=== PATIENT | male | born 1960 | race Caucasian/White ===

== ENCOUNTER 2017-04-26 11:40 | Day surgery (SDC) | payer OTHER ==
[~2017-04-26] VITALS: Ht 185.4 cm; Wt 117.9 kg
[~2017-04-26 11:40] MED LIST: 0.9% Sodium Chloride 1,000 ML IV SCH; ASPI-973 PO; ATOR80TA PO; DILT240C51 PO; GEMF600T3 PO; OMEG1CAP25 PO; Sodium Chloride LOK Flush 10 mL Syringe IV PRN; fentaNYL-PF 50 mCg/mL 2 mL Inj IVPUSH PRN
[2017-04-26 11:59] VITALS: BP 144/92; PULSE 69; RESP 14; O2SAT 96
[2017-04-26 13:18] VITALS: BP 141/89; PULSE 70; RESP 14; O2SAT 96
[2017-04-26 13:28] VITALS: BP 133/80; PULSE 73; RESP 16; O2SAT 94
[2017-04-26 13:39] VITALS: BP 131/85; PULSE 59; RESP 16; O2SAT 94
--- NOTE | 2017-04-26 14:18 | ENDO ---
[address] [address] ENDOSCOPY PROCEDURE PATIENT: SUSU LARSON : 1960 MR#: [id number] ADMIT: 04/26/2017 JOB ID: [id number] DATE: 04/26/2017 PRIMARY PROVIDER: Donna Carty D.O. PROCEDURE: Esophagogastroduodenoscopy with biopsy and a colonoscopy with cold forceps polypectomies. INDICATIONS: A 56-year-old male with intermittent vomiting versus regurgitation and a personal history of colon polyps. EQUIPMENT: GIF H 180 J and a PCF H 190 DL. SEDATION: 1. 5 mg Versed. 2. 125 mcg fentanyl. COMPLICATIONS: None identified. BOWEL PREPARATION: Fair, adequate examination. PROCEDURAL INFORMATION: After the risks and benefits were explained, written and verbal informed consent was obtained. The patient was brought into the endoscopy suite and placed into the left lateral decubitus position. Sedation was achieved as above. The scope was introduced into the mouth through the bite block, and advanced to the second portion of the duodenum. The scope was slowly withdrawn to carefully examine the mucosa for any defects or lesions. Retroflexed views were accomplished in the stomach. The stomach was decompressed. The scope removed from the patient who tolerated the procedure well. The patient was then turned around. A digital rectal examination accomplished. No significant pathology appreciated. The scope was introduced into the rectum and advanced under direct visualization to the level of the cecum, as identified by the appendiceal orifice and ileocecal valve. The scope was slowly withdrawn to carefully examine the mucosa for any defects or lesions. Retroflexed views were avoided in the rectum. Multiple direct views were made through the dentate line for exclusion of pathology. The colon was decompressed. The scope removed from the patient who tolerated the procedure well. FINDINGS: 1. Duodenum: No significant pathology appreciated from the bulb through to the second portion. 2. Stomach: No ulcers, no outlet obstruction. No mass lesions. Retroflexed views of the LES were unremarkable. Mild gastropathy was seen throughout and random biopsy was acquired for exclusion of Helicobacter or other pathology. 3. Esophagus: The squamocolumnar junction generally correlated with the top of the gastric folds. However, there was evidence of LA grade C ulcerative esophagitis and it was difficult to exclude the presence of an element of short Kellogg's involved here. Subtle sliding hiatal hernia was evident. The GEJ was at 41 cm from the incisors. 4. Colon: A couple of diminutive polyps were removed from the right colon using cold forceps. Otherwise, no significant pathology was appreciated throughout. ENDOSCOPIC DIAGNOSES: 1. Minimal gastropathy. 2. Small sliding hiatal hernia. 3. LA grade C ulcerative esophagitis. 4. Colon polyps x2. RECOMMENDATIONS: 1. Await histopathology. 2. Repeat colonoscopy in five years' time. 3. The patient is encouraged to initiate anti secretory therapy with Protonix 20 mg twice daily. 4. Repeat EGD in approximately six weeks time to ensure healing and then biopsy any residual anomalies or mucosa that appears suggestive of Kellogg's.
--- NOTE | 2017-04-27 14:00 | PATH ---
SURGICAL PATHOLOGY Attending Physician:Rito Vasquez CASE STATUS: Signed Out PATIENT NAME: SUSU LARSON PID: [id number] : 1960 DATE COLLECTED:04/26/2017 22:34 SPECIMEN: 1: Gastric, Biopsy 2: Colon, Polyp CLINICAL HISTORY: 1). GASTRIC BIOPSY - R/O H.PYLORI 2). COLON POLYPS X2 FINAL DIAGNOSIS: 1.GASTRIC BIOPSY: MILD CHRONIC GASTRITIS INVOLVING ANTRAL MUCOSA. Negative for evidence of Helicobacter on H&E stain. Positive for intestinal metaplasia. Negative for dysplasia and malignancy. 2.COLON POLYPS: TUBULAR ADENOMA INVOLVING BOTH BIOPSY FRAGMENTS. ICD10 D12.6 GROSS DESCRIPTION: Two containers received in formalin. 1. Received in formalin, labeled with the patient' s name and "gastric", is one fragment of gl[place], soft tissue measuring 0.3 x 0.2 x 0.2 cm. The fragments are completely submitted in cassette 1A. 2. Received in formalin, labeled with the patient' s name and "colon polyps", are two fragments of glasgow, soft tissue measuring 0.3 x 0.3 x 0.2 cm to 0.4 x 0.3 x 0.2 cm. The fragments are completely submitted in cassette 2A. ([id number]) MICRO DESCRIPTION: See diagnosis. ICD-9 CODES: CPT CODES: 1: 22498 2: 57587 Electronically Signed Out Juve Argueta MD [facility] Pathology [facility] [address], [place] [address] Technical component performed at [facility], [facility] [address], [place], [address]
== END 2017-04-26 23:59 | disposition home or self-care (01) ==
LOC: END 11:40
PROVIDERS: ATTEND Internal Medicine Gastroenterology
DX: Z12.11 Encounter for screening for malignant neoplasm of colon (principal); D12.2 Benign neoplasm of ascending colon; Z86.010 Personal history of colon polyps; K29.50 Unspecified chronic gastritis without bleeding; K44.9 Diaphragmatic hernia without obstruction or gangrene; K22.10 Ulcer of esophagus without bleeding; K31.9 Disease of stomach and duodenum, unspecified; I10 Essential (primary) hypertension; F32.9 Major depressive disorder, single episode, unspecified; E78.5 Hyperlipidemia, unspecified; K21.9 Gastro-esophageal reflux disease without esophagitis; I47.1 Supraventricular tachycardia; Z79.82 Long term (current) use of aspirin
CPT/HCPCS: 43239; 45380; 99153; G0500; J2250; J3010; J7030

== ENCOUNTER 2017-06-07 07:12 | Day surgery (SDC) | payer OTHER ==
[~2017-06-07] VITALS: Ht 185.4 cm; Wt 72.6 kg
[2017-06-07 07:39] VITALS: BP 134/81; PULSE 76; RESP 12; O2SAT 92
[2017-06-07] MEDS ORDERED: OMEP20CA11 PO (07:42)
[2017-06-07 08:20] VITALS: BP 128/83; PULSE 62; RESP 16; O2SAT 91
[2017-06-07 08:30] VITALS: BP 108/71; PULSE 60; O2SAT 94
[2017-06-07 08:39] VITALS: BP 121/73; PULSE 64; O2SAT 95
--- NOTE | 2017-06-07 08:55 | ENDO ---
[address] [address] ENDOSCOPY PROCEDURE PATIENT: SUSU LARSON : 1960 MR#: [id number] ADMIT: 06/07/2017 JOB ID: [id number] DATE: 06/07/2017 PRIMARY PROVIDER: Donna Carty M.D. PROCEDURE: Esophagogastroduodenoscopy with biopsies. INDICATIONS: A 56-year-old male with LA grade C erosive esophagitis and ulcerative esophagitis returning for repeat examination. The patient reports that he is on Prilosec twice per day, but compliant with the b.i.d. approach about 80% of the time. EQUIPMENT: GIF H 180 J. SEDATION: 1. 3 mg Versed. 2. 75 mcg fentanyl. COMPLICATIONS: None identified. PROCEDURAL INFORMATION: After the risks and benefits were explained, written and verbal informed consent was obtained. The patient was brought into the endoscopy suite and placed into the left lateral decubitus position. Sedation was achieved using the above-stated medications with the addition of oxygen via nasal cannula. The scope was introduced into the mouth through the bite block and advanced to the second portion of the duodenum. The scope was slowly withdrawn to carefully examine the mucosa for any defects or lesions. Retroflexed views were accomplished in the stomach. The stomach was decompressed. The scope removed from the patient who tolerated the procedure well. FINDINGS: 1. Duodenum: No significant pathology identified from the bulb through to the second portion. 2. Stomach: The patient had a couple of small punctate ulcerations in the antrum region. No mass lesions. I suspect this is from his daily aspirin use. No outlet obstruction. I did not repeat biopsies in that historically there was no evidence of Helicobacter pylori infection. Retroflexed views of the LES were rather unremarkable. 3. Esophagus: The squamocolumnar junction seemed to possibly extend up into the distal esophagus but it was very difficult to determine whether this was classic Kellogg's, yes or no, in that he still had evidence of LA grade B ulcerative esophagitis. A subtle hiatal hernia was present. In the distal esophagus in the 1 o'clock location, I took a biopsy for exclusion of intestinal specialized intestinal metaplasia. I then took a separate biopsy from the esophageal ulcerated section in the 4 o'clock location. Photographs were again taken. The remainder of the esophagus was unremarkable. ENDOSCOPIC DIAGNOSES: 1. LA grade B ulcerative esophagitis. 2. Hiatal hernia. 3. Ulcerative gastropathy. RECOMMENDATIONS: 1. Await histopathology. 2. Consider reducing aspirin consumption to every other day. 3. The patient is encouraged to be absolutely compliant with the twice daily omeprazole approach. 4. Timing of repeat EGD will be contingent on biopsies. If Kellogg's is found, yet is non dysplastic, I would be inclined to repeat the EGD in no later than six months to ensure complete healing of the esophagus with PPI compliance and repeat biopsies at that time.
--- NOTE | 2017-06-10 16:50 | PATH ---
SURGICAL PATHOLOGY Attending Physician:Rito Vasquez CASE STATUS: Signed Out PATIENT NAME: SUSU LARSON PID: [id number] : 1960 DATE COLLECTED:06/07/2017 16:17 SPECIMEN: 1: Esophagus, Biopsy 2: Esophagus, Biopsy CLINICAL HISTORY: 1). DISTAL ESOPHAGUS BIOPSY 2). ESOPHAGEAL ULCER FINAL DIAGNOSIS: 1.DISTAL ESOPHAGUS, BIOPSY: COLUMNAR MUCOSA WITH SPECIALIZED INTESTINAL METAPLASIA, CONSISTENT WITH COTA' S ESOPHAGUS. NEGATIVE FOR DYSPLASIA OR MALIGNANCY. 2.ESOPHAGEAL ULCER, BIOPSY: SQUAMOCOLUMNAR JUNCTIONAL MUCOSA WITH MILD ACTIVE ESOPHAGITIS. NEGATIVE FOR FUNGAL ORGANISMS ON A PAS STAIN. NEGATIVE FOR INTESTINAL METAPLASIA, DYSPLASIA OR MALIGNANCY. ICD10 K22.7 GROSS DESCRIPTION: The specimen is received in two formalin filled containers labeled with the patient's name. 1). The specimen is labeled "distal soft mass" and consists of a 0.2 x 0.2 x 0.2 CM portion of tissue which is entirely submitted in cassette 1A. 2). The specimen is labeled "esophageal ulcer" and consists of 2 portions of tissue which aggregate to 0.2 x 0.2 x 0.2 CM. The specimen is entirely submitted in cassette 2A. 06/07/2017DC MICRO DESCRIPTION: 2.A PAS stain was performed to evaluate for fungal organisms and is negative. The control stain shows appropriate reactivity. This test was developed and its performance characteristics determined by [facility]. It has not been cleared or approved by the [place]. [place]. Food and Drug Administration. The FDA has determined that such clearance or approval is not necessary. This test is used for clinical purposes. It should not be regarded as investigational or for research. ICD-9 CODES: CPT CODES: 1: 74255 2: 04632, 78563 Electronically Signed Out Binh Isaac MD, Ph.D. [facility] Pathology [facility] [address], [place] [address] Technical component performed at [facility], [address], [place], [address]
== END 2017-06-07 23:59 | disposition home or self-care (01) ==
LOC: END 07:12
PROVIDERS: ATTEND Internal Medicine Gastroenterology
DX: K22.10 Ulcer of esophagus without bleeding (principal); K44.9 Diaphragmatic hernia without obstruction or gangrene; K31.9 Disease of stomach and duodenum, unspecified; K21.9 Gastro-esophageal reflux disease without esophagitis; F32.9 Major depressive disorder, single episode, unspecified; I10 Essential (primary) hypertension; I47.1 Supraventricular tachycardia; Z79.82 Long term (current) use of aspirin
CPT/HCPCS: 43239; G0500; J2250; J3010; J7030